=== PATIENT | female | born 1955 | race Caucasian/White ===

== ENCOUNTER 2017-12-03 06:27 | Emergency (ER) | payer MEDICAID, MEDICARE, OTHER ==
[~2017-12-03] VITALS: Ht 157.5 cm; Wt 73.0 kg
[2017-12-03] MEDS ORDERED: IBUPROFEN 600MG TABLET PO ONE (07:30)
[2017-12-03 08:02] VITALS: BP 137/62
== END 2017-12-03 08:47 | disposition home or self-care (01) ==
LOC: ER 06:29
DX: S05.12XA Contusion of eyeball and orbital tissues, left eye, initial encounter (principal); S00.33XA Contusion of nose, initial encounter; J45.909 Unspecified asthma, uncomplicated; Y08.89XA Assault by other specified means, initial encounter; Y93.89 Activity, other specified; Y92.89 Other specified places as the place of occurrence of the external cause; Y99.8 Other external cause status
CPT/HCPCS: 99282; 99283

== ENCOUNTER 2017-12-08 20:21 | Emergency (ER) | payer MEDICAID, MEDICARE, OTHER ==
[~2017-12-08] VITALS: Ht 157.5 cm; Wt 73.0 kg
[2017-12-08] MEDS ORDERED: SODIUM CHLORIDE 0.9% 1,000 ML IV ONE (21:12)
[2017-12-08] MEDS ORDERED: ONDANSETRON HCL 4MG/2ML VIAL IV STA (21:12)
[2017-12-08] MEDS ORDERED: KETOROLAC 30MG/ML VIAL IV STA (21:12)
[2017-12-08 22:02] LABS: BASOPHILS % 0.9 % (0.0-2.0); EOSINOPHILS % 1.2 % (0.0-5.0); HEMATOCRIT. 37.3 % (36.0-48.0); HEMOGLOBIN. 12.5 g/dL (12.0-16.0); LYMPHOCYTES % 25.2 % (20.0-50.0); MEAN CORPUSCULAR HEMOGLOBIN 28.9 pg (28.0-32.0); MEAN CORPUSCULAR VOLUME 86.4 fL (81.0-99.0); MEAN PLATELET VOLUME 7.8 fl (7.4-10.4); MONOCYTES % 6.9 % (2.0-8.0); NEUTROPHILS % 65.8 % (40.0-76.0); PLATELET 258 x1000/uL (130-400); RED BLOOD CELL COUNT 4.32 mill/uL (4.2-5.4); RED CELL DISTRIBUTION WIDTH 13.9 % (11.6-14.6)
[2017-12-08 22:06] LABS: CHLORIDE 109 mEq/L (98-107)
[2017-12-08 22:50] LABS: CLARITY URINE TURBID (CLEAR); COLOR URINE DARK YELLOW (YELLOW); KETONES URINE TRACE (NEGATIVE); LEUKOCYTE ESTERASE URINE 3+ (NEGATIVE); NITRITE URINE POSITIVE (NEGATIVE); OCCULT BLOOD URINE 2+ (NEGATIVE); PROTEIN URINE 1+ (NEGATIVE); SPECIFIC GRAVITY URINE 1.028 (1.005-1.030)
[2017-12-08] MEDS ORDERED: ONDANSETRON HCL 4MG/2ML VIAL IV ONE (23:00)
[2017-12-08] MEDS ORDERED: MORPHINE SULFATE 4 MG/ML CPJ (NOT FOR IM USE) IV ONE (23:00)
[2017-12-08] MEDS ORDERED: CEFTRIAXONE 1 G PREMIX 50 ML IV ONE (23:00)
[2017-12-09 00:21] VITALS: BP 119/65
== END 2017-12-09 05:34 | disposition home or self-care (01) ==
LOC: ER 20:22
DX: K40.30 Unilateral inguinal hernia, with obstruction, without gangrene, not specified as recurrent (principal); N30.00 Acute cystitis without hematuria; R10.32 Left lower quadrant pain; J45.909 Unspecified asthma, uncomplicated; Z90.710 Acquired absence of both cervix and uterus
CPT/HCPCS: 36415; 74176; 80053; 81003; 85025; 87077; 87086; 87186; 96361; 96365; 96375; 96376; 99285; J0696; J1885; J2270; J2405; J7030; J7040; Z7610

== ENCOUNTER 2018-03-16 01:37 | Emergency (ER) | payer OTHER ==
[~2018-03-16] VITALS: Ht 157.5 cm; Wt 77.0 kg
[2018-03-16] MEDS ORDERED: MORPHINE SULFATE 2 MG/ML CPJ (NOT FOR IM USE) IV ONE (03:30)
[2018-03-16] MEDS ORDERED: SODIUM CHLORIDE 0.9% 1,000 ML IV ONE (03:30)
[2018-03-16] MEDS ORDERED: ONDANSETRON HCL 4MG/2ML INJ IV ONE (03:30)
[2018-03-16 03:34] LABS: CLARITY URINE CLEAR (CLEAR); COLOR URINE DARK YELLOW (YELLOW); KETONES URINE TRACE (NEGATIVE); LEUKOCYTE ESTERASE URINE 1+ (NEGATIVE); NITRITE URINE NEGATIVE (NEGATIVE); OCCULT BLOOD URINE NEGATIVE (NEGATIVE); PH URINE 5.5 (4.5-8.0); PROTEIN URINE NEGATIVE (NEGATIVE); SPECIFIC GRAVITY URINE 1.026 (1.005-1.030)
[2018-03-16 03:37] LABS: CHLORIDE 108 mEq/L (98-107)
[2018-03-16 03:38] LABS: PROTHROMBIN TIME 9.7 sec (9.1-11.1)
[2018-03-16 03:39] LABS: BASOPHILS % 0.8 % (0.0-2.0); EOSINOPHILS % 2.1 % (0.0-5.0); HCG SCREEN NEGATIVE; HEMATOCRIT. 35.6 % (36.0-48.0); HEMOGLOBIN. 11.9 g/dL (12.0-16.0); MEAN CORPUSCULAR HEMOGLOBIN 29.1 pg (28.0-32.0); MEAN CORPUSCULAR VOLUME 87.5 fL (81.0-99.0); MEAN PLATELET VOLUME 7.8 fl (7.4-10.4); MONOCYTES % 7.5 % (2.0-8.0); NEUTROPHILS % 56.6 % (40.0-76.0); PLATELET 305 x1000/uL (130-400); RED BLOOD CELL COUNT 4.07 mill/uL (4.2-5.4); RED CELL DISTRIBUTION WIDTH 13.2 % (11.6-14.6)
[2018-03-16 03:51] LABS: *AMPHETAMINES SCREEN URINE PRESUMTIVE POSITIVE (NEGATIVE); CANNABINOID URINE SCREEN NEGATIVE (NEGATIVE); METHADONE URINE SCREEN NEGATIVE (NEGATIVE); OPIATES URINE SCREEN NEGATIVE (NEGATIVE); PHENCYCLIDINE URINE SCREEN NEGATIVE (NEGATIVE)
[2018-03-16 03:52] LABS: *BARBITURATES SCREEN URINE NEGATIVE (NEGATIVE); *BENZODIAZEPINES SCREEN URINE NEGATIVE (NEGATIVE); *COCAINE SCREEN URINE NEGATIVE (NEGATIVE)
[2018-03-16] MEDS ORDERED: POTASSIUM CHLORIDE 20MEQ TABLET SR PO ONE (05:45)
[2018-03-16] MEDS ORDERED: KETOROLAC 30MG/ML VIAL IV ONE (06:00)
[2018-03-16] MEDS ORDERED: NA PHOS,M-B/NA PHOS,DI-BA ENEMA 118ML PR ONE (06:00)
[2018-03-16] MEDS ORDERED: IOHEXOL-300 100 ML BOTTLE ONE (06:15)
[2018-03-16 07:16] VITALS: BP 108/49
== END 2018-03-16 07:25 | disposition home or self-care (01) ==
LOC: ER 01:37
DX: R10.32 Left lower quadrant pain (principal); R11.0 Nausea; R30.0 Dysuria; K59.00 Constipation, unspecified; J45.909 Unspecified asthma, uncomplicated; Z98.890 Other specified postprocedural states
CPT/HCPCS: 36415; 74177; 80053; 80305; 81003; 83605; 83690; 84703; 85025; 85610; 96374; 96375; 99285; J1885; J2270; J2405; J7030; Q9967; Z7610

== ENCOUNTER 2018-03-26 00:13 | Emergency (ER) | payer OTHER ==
[~2018-03-26] VITALS: Ht 157.5 cm; Wt 52.0 kg
[2018-03-26] MEDS ORDERED: DEXAMETHASONE 10 MG/ML VIAL IM ONE (03:45)
[2018-03-26] MEDS ORDERED: FAMOTIDINE 20MG TABLET PO ONE (03:45)
[2018-03-26] MEDS ORDERED: DIPHENHYDRAMINE 25MG CAPSULE PO ONE (03:45)
[2018-03-26 04:17] VITALS: BP 115/74
[2018-03-26] MEDS ORDERED: FAMOTIDINE 20MG TABLET PO SCH (21:00)
== END 2018-03-26 04:17 | disposition home or self-care (01) ==
LOC: ER 00:13
DX: T78.40XA Allergy, unspecified, initial encounter (principal); R03.0 Elevated blood-pressure reading, without diagnosis of hypertension; J45.909 Unspecified asthma, uncomplicated; Z98.890 Other specified postprocedural states; X58.XXXA Exposure to other specified factors, initial encounter
CPT/HCPCS: 96372; 99283; J1100; Q0163

== ENCOUNTER 2018-08-23 06:15 | Emergency (ER) | payer OTHER ==
[~2018-08-23] VITALS: Ht 157.5 cm; Wt 52.0 kg
[2018-08-23] MEDS ORDERED: IBUPROFEN 600MG TABLET PO STA (07:40)
[2018-08-23 11:03] LABS: CLARITY URINE CLEAR (CLEAR); COLOR URINE YELLOW (YELLOW); KETONES URINE NEGATIVE (NEGATIVE); LEUKOCYTE ESTERASE URINE NEGATIVE (NEGATIVE); NITRITE URINE NEGATIVE (NEGATIVE); OCCULT BLOOD URINE NEGATIVE (NEGATIVE); PROTEIN URINE NEGATIVE (NEGATIVE); SPECIFIC GRAVITY URINE 1.007 (1.005-1.030); UROBILINOGEN URINE 0.2 E.U./dL (0.2-1.0)
[2018-08-23 11:56] VITALS: BP 116/54
== END 2018-08-23 12:02 | disposition home or self-care (01) ==
LOC: ER 06:15
DX: S30.0XXA Contusion of lower back and pelvis, initial encounter (principal); J45.909 Unspecified asthma, uncomplicated; Y08.89XA Assault by other specified means, initial encounter; Y93.89 Activity, other specified; Y92.9 Unspecified place or not applicable; Z98.890 Other specified postprocedural states
CPT/HCPCS: 72110; 72170; 81003; 99284; Z7610

== ENCOUNTER 2018-09-10 00:37 | Emergency (ER) | payer OTHER ==
[~2018-09-10] VITALS: Ht 157.5 cm; Wt 52.0 kg
[2018-09-10] MEDS ORDERED: IBUPROFEN 600MG TABLET PO ONE (04:15)
[2018-09-10 07:07] VITALS: BP 109/61
== END 2018-09-10 07:08 | disposition home or self-care (01) ==
LOC: ER 00:37
DX: S90.01XA Contusion of right ankle, initial encounter (principal); J45.909 Unspecified asthma, uncomplicated; Z90.89 Acquired absence of other organs; W01.0XXA Fall on same level from slipping, tripping and stumbling without subsequent striking against object, initial encounter; Y93.89 Activity, other specified; Y92.488 Other paved roadways as the place of occurrence of the external cause
CPT/HCPCS: 73522; 73610; 73630; 99283

== ENCOUNTER 2018-11-26 05:28 | Emergency (ER) | payer OTHER ==
[~2018-11-26] VITALS: Ht 157.5 cm; Wt 52.0 kg
[2018-11-26 05:53] VITALS: BP 113/60
[2018-11-26] MEDS ORDERED: ACETAMINOPHEN 325MG TABLET PO ONE (06:30)
== END 2018-11-26 06:50 | disposition home or self-care (01) ==
LOC: ER 05:28
DX: S00.83XA Contusion of other part of head, initial encounter (principal); J45.909 Unspecified asthma, uncomplicated; Z90.89 Acquired absence of other organs; W22.8XXA Striking against or struck by other objects, initial encounter; Y93.89 Activity, other specified; Y92.89 Other specified places as the place of occurrence of the external cause; Y99.8 Other external cause status
CPT/HCPCS: 99283

== ENCOUNTER 2018-12-14 19:54 | Emergency (ER) | payer OTHER ==
[~2018-12-14] VITALS: Ht 157.5 cm; Wt 53.0 kg
[2018-12-14 20:08] VITALS: BP 133/57
== END 2018-12-14 23:45 | disposition left against medical advice (07) ==
LOC: ER 19:54
DX: Z53.21 Procedure and treatment not carried out due to patient leaving prior to being seen by health care provider (principal)

== ENCOUNTER 2018-12-15 05:41 | Emergency (ER) | payer OTHER ==
[~2018-12-15] VITALS: Ht 157.5 cm; Wt 52.0 kg
[2018-12-15 05:55] VITALS: BP 116/60
[2018-12-15] MEDS ORDERED: ACETAMINOPHEN 325MG TABLET PO ONE (07:15)
[2018-12-15] MEDS ORDERED: TETRACAINE 0.5% OPHTH DROPS 4ML OP ONE (07:15)
[2018-12-15] MEDS ORDERED: FLUORESCEIN SODIUM 1MG/STRIP OP ONE (07:15)
== END 2018-12-15 08:13 | disposition left against medical advice (07) ==
LOC: ER 05:41
DX: R51 Headache (principal); H57.12 Ocular pain, left eye; M79.642 Pain in left hand; M54.2 Cervicalgia; Y08.89XA Assault by other specified means, initial encounter; W01.0XXA Fall on same level from slipping, tripping and stumbling without subsequent striking against object, initial encounter; Y93.9 Activity, unspecified; Y92.9 Unspecified place or not applicable
CPT/HCPCS: 73130; 99284

== ENCOUNTER 2018-12-15 09:01 | Emergency (ER) | payer OTHER ==
[~2018-12-15] VITALS: Ht 160 cm; Wt 56.0 kg
[2018-12-15] MEDS ORDERED: IBUPROFEN 800MG TABLET PO ONE (10:45)
[2018-12-15 13:16] VITALS: BP 118/69
== END 2018-12-15 13:23 | disposition home or self-care (01) ==
LOC: ER 09:01
DX: S16.1XXA Strain of muscle, fascia and tendon at neck level, initial encounter (principal); M79.641 Pain in right hand; J45.909 Unspecified asthma, uncomplicated; Y08.89XA Assault by other specified means, initial encounter; Y93.9 Activity, unspecified; Y92.9 Unspecified place or not applicable; Z59.0 Homelessness
CPT/HCPCS: 29130; 73120; 99283

== ENCOUNTER 2019-03-25 03:37 | Emergency (ER) | payer MEDICAID, OTHER ==
[~2019-03-25] VITALS: Ht 157.5 cm; Wt 64.0 kg
[2019-03-25] MEDS ORDERED: KETOROLAC 60MG/2ML VIAL IM ONE (04:30)
[2019-03-25 05:57] VITALS: BP 128/71
== END 2019-03-25 05:58 | disposition home or self-care (01) ==
LOC: ER 03:37
DX: M79.18 Myalgia, other site (principal); J45.909 Unspecified asthma, uncomplicated; F17.210 Nicotine dependence, cigarettes, uncomplicated; Z59.0 Homelessness; Z90.49 Acquired absence of other specified parts of digestive tract; Y08.89XA Assault by other specified means, initial encounter; Y93.89 Activity, other specified; Y92.810 Car as the place of occurrence of the external cause
CPT/HCPCS: 71045; 96372; 99283; J1885; Z7610

== ENCOUNTER 2019-04-15 12:49 | Emergency (ER) | payer MEDICAID, MEDICARE ==
[~2019-04-15] VITALS: Ht 162.6 cm; Wt 63.0 kg
[2019-04-15] MEDS ORDERED: TETRACAINE 0.5% OPHTH DROPS 4ML BOTHEYE ONE (13:15)
[2019-04-15] MEDS ORDERED: IBUPROFEN 600MG TABLET PO ONE (13:15)
[2019-04-15] MEDS ORDERED: FLUORESCEIN SODIUM 1MG/STRIP BOTHEYE ONE (13:15)
[2019-04-15] MEDS ORDERED: TETANUS, DIPHTHERIA, PERTUSSIS VAC/PF 0.5ML (>7YR OLD) IM ONE (13:45)
[2019-04-15 17:52] VITALS: BP 135/62
== END 2019-04-15 18:27 | disposition home or self-care (01) ==
LOC: ER 12:49
DX: T65.93XA Toxic effect of unspecified substance, assault, initial encounter (principal); H57.13 Ocular pain, bilateral; H53.8 Other visual disturbances; Y92.410 Unspecified street and highway as the place of occurrence of the external cause; Z59.0 Homelessness
CPT/HCPCS: 90471; 90715; 99284

== ENCOUNTER 2020-02-05 00:45 | Emergency (ER) | payer MEDICARE, OTHER ==
[~2020-02-05] VITALS: Ht 157.5 cm; Wt 68.0 kg
[2020-02-05] MEDS ORDERED: ASPIRIN 81MG TABLET PO ONE (01:30)
[2020-02-05] MEDS ORDERED: NITROGLYCERIN 0.4MG TABLET SL SL PRN (01:30)
[2020-02-05 02:04] LABS: BASOPHILS % 0.5 % (0.0-2.0); EOSINOPHILS % 2.2 % (0.0-5.0); HEMATOCRIT. 39.3 % (36.0-48.0); HEMOGLOBIN. 13.4 g/dL (12.0-16.0); LYMPHOCYTES % 34.9 % (20.0-50.0); MEAN CORPUSCULAR HEMOGLOBIN 30.1 pg (28.0-32.0); MEAN CORPUSCULAR VOLUME 88.5 fL (81.0-99.0); MEAN PLATELET VOLUME 8.6 fl (7.4-10.4); MONOCYTES % 7.2 % (2.0-8.0); NEUTROPHILS % 55.2 % (40.0-76.0); PLATELET 244 x1000/uL (130-400); RED BLOOD CELL COUNT 4.44 mill/uL (4.2-5.4); RED CELL DISTRIBUTION WIDTH 14.1 % (11.6-14.6)
[2020-02-05 02:09] LABS: CHLORIDE 110 mEq/L (98-107)
[2020-02-05 02:17] LABS: D-DIMER 0.49 mg/L FEU (<0.50); INR 0.9; PARTIAL THROMBOPLASTIN TIME 21.2 sec (23.4-31.0); PROTHROMBIN TIME 9.5 sec (9.6-11.0)
[2020-02-05 06:09] VITALS: BP 106/52
== END 2020-02-05 06:25 | disposition left against medical advice (07) ==
LOC: ER 00:45 → CANBEDREQ 07:23
DX: R07.9 Chest pain, unspecified (principal); J45.909 Unspecified asthma, uncomplicated
CPT/HCPCS: 36415; 71045; 80053; 83880; 84484; 85025; 85379; 85610; 85730; 93005; 93970; 99285; Z7610

== ENCOUNTER 2020-02-17 00:18 | Emergency (ER) | payer OTHER ==
[~2020-02-17] VITALS: Ht 157.5 cm; Wt 52.5 kg
[2020-02-17] MEDS ORDERED: IBUPROFEN 600MG TABLET PO STA (01:30)
[2020-02-17 02:22] LABS: BASOPHILS % 1.3 % (0.0-2.0); EOSINOPHILS % 1.3 % (0.0-5.0); HEMATOCRIT. 38.9 % (36.0-48.0); HEMOGLOBIN. 13.1 g/dL (12.0-16.0); LYMPHOCYTES % 30.3 % (20.0-50.0); MEAN CORPUSCULAR HEMOGLOBIN 30.1 pg (28.0-32.0); MEAN CORPUSCULAR VOLUME 89.4 fL (81.0-99.0); MEAN PLATELET VOLUME 7.8 fl (7.4-10.4); MONOCYTES % 7.1 % (2.0-8.0); PLATELET 241 x1000/uL (130-400); RED BLOOD CELL COUNT 4.35 mill/uL (4.2-5.4); RED CELL DISTRIBUTION WIDTH 14.3 % (11.6-14.6)
[2020-02-17 02:24] VITALS: BP 114/58
[2020-02-17 02:28] LABS: CHLORIDE 107 mEq/L (98-107)
[2020-02-17] MEDS ORDERED: DICYCLOMINE 10 MG/5 ML ORAL SYR PO STA (03:13)
[2020-02-17] MEDS ORDERED: VISCOUS LIDOCAINE 2% 15 ML UDC PO STA (03:13)
== END 2020-02-17 04:06 | disposition home or self-care (01) ==
LOC: ER 00:18
DX: R07.89 Other chest pain (principal); Z90.49 Acquired absence of other specified parts of digestive tract; Z90.710 Acquired absence of both cervix and uterus
CPT/HCPCS: 36415; 71045; 80053; 84484; 85025; 93005; 99285

== ENCOUNTER 2020-04-19 21:58 | Emergency (ER) | payer OTHER ==
[~2020-04-19] VITALS: Ht 157.5 cm; Wt 59.0 kg
[2020-04-19 22:01] VITALS: BP 129/60
[2020-04-19] MEDS ORDERED: ACETAMINOPHEN 325MG TABLET PO ONE (22:30)
== END 2020-04-19 23:08 | disposition home or self-care (01) ==
LOC: ER 22:06
DX: M79.672 Pain in left foot (principal); M72.2 Plantar fascial fibromatosis; J45.909 Unspecified asthma, uncomplicated; Z98.890 Other specified postprocedural states; Z90.49 Acquired absence of other specified parts of digestive tract; Z90.710 Acquired absence of both cervix and uterus
CPT/HCPCS: 99282

== ENCOUNTER 2020-04-26 04:59 | Emergency (ER) | payer OTHER ==
[~2020-04-26] VITALS: Ht 157.5 cm; Wt 73.0 kg
[2020-04-26] MEDS ORDERED: SODIUM CHLORIDE 0.9% 1,000 ML IV ONE (05:30)
[2020-04-26 06:15] LABS: BASOPHILS % 0.5 % (0.0-2.0); EOSINOPHILS % 2.2 % (0.0-5.0); HEMOGLOBIN. 11.5 g/dL (12.0-16.0); LYMPHOCYTES % 26.5 % (20.0-50.0); MEAN CORPUSCULAR VOLUME 88.5 fL (81.0-99.0); MEAN PLATELET VOLUME 8.1 fl (7.4-10.4); MONOCYTES % 8.1 % (2.0-8.0); NEUTROPHILS % 62.7 % (40.0-76.0); PLATELET 230 x1000/uL (130-400); RED BLOOD CELL COUNT 3.84 mill/uL (4.2-5.4); RED CELL DISTRIBUTION WIDTH 13.2 % (11.6-14.6)
[2020-04-26 06:29] LABS: CHLORIDE 110 mEq/L (98-107)
[2020-04-26] MEDS ORDERED: ACETAMINOPHEN 500MG TABLET PO ONE (06:30)
[2020-04-26 06:31] LABS: INR 0.9; PROTHROMBIN TIME 9.3 sec (9.6-11.0)
[2020-04-26 07:52] LABS: CLARITY URINE TURBID (CLEAR); COLOR URINE YELLOW (YELLOW); KETONES URINE NEGATIVE (NEGATIVE); LEUKOCYTE ESTERASE URINE 3+ (NEGATIVE); NITRITE URINE NEGATIVE (NEGATIVE); OCCULT BLOOD URINE 2+ (NEGATIVE); PROTEIN URINE 2+ (NEGATIVE); SPECIFIC GRAVITY URINE 1.029 (1.005-1.030); UROBILINOGEN URINE 0.2 E.U./dL (0.2-1.0)
[2020-04-26] MEDS ORDERED: CEFTRIAXONE 1 G PREMIX 50 ML IV ONE (08:45)
[2020-04-26 09:35] VITALS: BP 111/62
== END 2020-04-26 10:04 | disposition home or self-care (01) ==
LOC: ER 04:59
DX: N39.0 Urinary tract infection, site not specified (principal); K59.00 Constipation, unspecified; J45.909 Unspecified asthma, uncomplicated; Z98.890 Other specified postprocedural states
CPT/HCPCS: 36415; 74176; 80053; 81003; 83605; 83690; 84484; 85025; 85610; 87086; 96365; 99284; J0696; J7030

== ENCOUNTER 2020-07-15 03:26 | Emergency (ER) | payer MEDICAID, OTHER ==
[~2020-07-15] VITALS: Ht 157.5 cm; Wt 64.0 kg
[2020-07-15 03:27] VITALS: BP 126/68
[2020-07-15 05:00] LABS: CHLORIDE 107 mEq/L (98-107)
== END 2020-07-15 05:21 | disposition home or self-care (01) ==
LOC: ER 03:26
DX: F41.9 Anxiety disorder, unspecified (principal); R07.89 Other chest pain; J45.909 Unspecified asthma, uncomplicated; Z91.14 Patient's other noncompliance with medication regimen
CPT/HCPCS: 36415; 71045; 80053; 84484; 93005; 99285; C1893

== ENCOUNTER 2021-02-11 08:01 | Emergency (ER) | payer OTHER ==
[~2021-02-11] VITALS: Ht 160 cm; Wt 66.0 kg
[2021-02-11 08:12] VITALS: BP 129/64
== END 2021-02-11 10:41 | disposition home or self-care (01) ==
LOC: ER 08:01
DX: S09.8XXA Other specified injuries of head, initial encounter (principal); S19.89XA Other specified injuries of other specified part of neck, initial encounter; J45.909 Unspecified asthma, uncomplicated; F41.9 Anxiety disorder, unspecified; Y08.89XA Assault by other specified means, initial encounter; Y93.9 Activity, unspecified; Y92.9 Unspecified place or not applicable
CPT/HCPCS: 99281

== ENCOUNTER 2021-11-15 03:18 | Emergency (ER) | payer MEDICARE, OTHER ==
[~2021-11-15] VITALS: Ht 157.5 cm; Wt 72.5 kg
[2021-11-15 03:28] VITALS: BP 125/58
[2021-11-15] MEDS ORDERED: IBUP-2029 MT (04:26)
[2021-11-15] MEDS ORDERED: CEPH500T MT (04:26)
[2021-11-15] MEDS ORDERED: IBUPROFEN 600MG TABLET PO ONE (04:30)
[2021-11-15] MEDS ORDERED: CEPHALEXIN 250MG CAPSULE PO ONE (04:30)
== END 2021-11-15 04:48 | disposition home or self-care (01) ==
LOC: ER 03:18
DX: L03.115 Cellulitis of right lower limb (principal); J45.909 Unspecified asthma, uncomplicated; F41.9 Anxiety disorder, unspecified; Z98.890 Other specified postprocedural states; Z90.89 Acquired absence of other organs
CPT/HCPCS: 99284